=== PATIENT | female | born 1970 | race Caucasian/White ===

== ENCOUNTER 2016-11-30 10:06 | Day surgery (SDC) | payer MEDICAID ==
[2016-11-30] VITALS (21 sets, daily range): BP systolic 81–128; BP diastolic 44–70; PULSE 62–88; RESP 12–25; Ht 154.9 cm; Wt 65.6 kg
[~2016-11-30] VITALS: Ht 154.9 cm; Wt 65.6 kg
[~2016-11-30 10:06] MED LIST: CEFAZOLIN 2 GM/50 ML (PMX) 50 ML IVPB SCH; DOCU-144 PO; FERR324T6 PO; SOD CHLORIDE 0.9% 1,000 ML IV SCH
[2016-11-30 11:33] LABS: ADD SCAN DIFF NO
[2016-11-30 11:42] LABS: BASOPHILS % 0.7 % (0.0-2.0); EOSINOPHILS % 0.2 % (0.0-7.0); HEMATOCRIT 38.5 % (37.0-47.0); HEMOGLOBIN 12.4 g/dl (12.0-16.0); LYMPHOCYTES # 0.9 10^3/ul (0.8-2.9); LYMPHOCYTES % 21.3 % (15.0-51.0); MEAN CORPUSCULAR HEMOGLOBIN 28.2 pg (29.0-33.0); MEAN CORPUSCULAR HGB CONC 32.2 g/dl (32.0-37.0); MEAN CORPUSCULAR VOLUME 87.5 fl (82.0-101.0); MEAN PLATELET VOLUME 10.4 fl (7.4-10.4); MONOCYTE # 0.4 10^3/ul (0.3-0.9); MONOCYTES % 8.6 % (0.0-11.0); NEUTROPHIL # 2.9 10^3/ul (1.6-7.5); PLATELET COUNT 218 10^3/UL (140-415); RED CELL DISTRIBUTION WIDTH 14.7 % (11.5-14.5); WHITE BLOOD COUNT 4.3 10^3/ul (4.8-10.8)
[2016-11-30 12:17] LABS: INR 1.1; PARTIAL THROMBOPLASTIN TIME 31.5 Sec (25.0-35.0); PROTIME 14.2 Sec (12.2-14.2); PT RATIO 1.1
[2016-11-30 12:40] LABS: CALCIUM 8.8 mg/dl (8.4-10.2); CREATININE 0.61 mg/dl (0.44-1.00)
[2016-11-30] MEDS ORDERED: PROPOFOL 40 ML ONE (13:38)
[2016-11-30] MEDS ORDERED: LIDOCAINE 2% (SDV) 5 ML INJ ONE (13:38)
[2016-11-30] MEDS ORDERED: hydrALAzine 20 MG INJ IV PRN (14:00)
[2016-11-30] MEDS ORDERED: FENTAnyl 50 MCG/ML VIAL IV PRN ×3 (14:00)
[2016-11-30] MEDS ORDERED: ONDANSETRON 4 MG INJ IV PRN (14:00)
[2016-11-30] MEDS ORDERED: OXYCODONE/ACETAMINOPHEN (5/325) TAB PO PRN ×2 (14:00)
[2016-11-30] MEDS ORDERED: HYDROmorphONE (0.2 MG/ML) 10ML SYG IV PRN ×3 (14:00)
[2016-11-30] MEDS ORDERED: LABETALOL HCL 20MG INJ IV PRN (14:00)
[2016-11-30] MEDS ORDERED: MEPERIDINE 25 MG INJ IV PRN (14:00)
[2016-11-30] MEDS ORDERED: EPHEDrine SULFATE 50 MG/5 ML SYG ONE (14:20)
--- NOTE | 2016-11-30 14:59 | OPR ---
DATE OF OPERATION: 11/30/2016 PREOPERATIVE DIAGNOSIS: Right axillary nodule. POSTOPERATIVE DIAGNOSIS: Right axillary nodule. OPERATION PERFORMED: Excision of right axillary nodule. ANESTHESIA: General. ANESTHESIOLOGIST: Alex Hargrove MD SURGEON: Tramaine Cowan MD PAPER PRODUCTS SUPERVISOR: None. INDICATIONS FOR PROCEDURE: The patient is a 46-year-old female. She is known to me. I previously treated her for left breast cancer. She developed evidence of a right axillary nodule and was vance rned, although, my clinical index of suspicion was very low that it was related to her previous manuel st cancer. She requested excision of the nodule. She consented and was scheduled for surgery. DESCRIPTION OF PROCEDURE: The patient was brought to the operating theater, placed under general an esthesia. The right axillary region was prepped and draped in the usual sterile fashion. A nodule was palpable approximately 2 cm in diameter. An elliptical incision was made around it and a portio n of the skin overlying the nodule and the nodule was resected using a combination of sharp dissecti on and cautery. It was sent for permanent pathologic analysis. The wound was irrigated with Betadi ne. Minimal bleeding was controlled with cautery, and the skin was reapproximated with 2-0 nylon quiroga tures in vertical mattress fashion. Estimated blood loss was 10 mL. There were no complications an d the patient was transported in stable condition to the recovery room. Dictated By: TRAMAINE CARABALLO/WILLIAMS Conf#: [id number] DID#: [id number]
== END 2016-11-30 17:00 | disposition home or self-care (01) ==
LOC: SDS 10:06
PROVIDERS: ATTEND Surgery Surgical Oncology
DX: L73.2 Hidradenitis suppurativa (principal)
CPT/HCPCS: 11402; 80048; 84703; 85025; 85610; 85730; 88307; J1170; Z7512; Z7610

== ENCOUNTER 2017-08-18 15:53 | Emergency (ER) | payer MEDICAID ==
[~2017-08-18] VITALS: Ht 160 cm; Wt 65.0 kg
[2017-08-18 15:56] VITALS: Ht 160 cm; Wt 65.0 kg
[2017-08-18] MEDS ORDERED: HYDROmorphONE 1 MG/ML SYG IV STA (17:04)
[2017-08-18] MEDS ORDERED: SOD CHLORIDE 0.9% 500 ML IV STA (17:04)
[2017-08-18] MEDS ORDERED: ONDANSETRON 4 MG INJ IV STA (17:04)
--- NOTE | 2017-08-18 17:22 | ERD ---
ER Documentation Chief Complaint Chief Complaint generalize bone pain x2wks. HPI This is a 47-year-old female with metastatic breast cancer, stage IV on chemotherapy who presents with generalized bone pain to her pelvis and legs. She states the pain is been worse over the past 2 weeks and she is only taking tramadol. She denies any fevers chills or cough, no dysuria urgency or frequency. The patient states that cancer has spread to her bones she is not sure which ones. A boat builder was used. The pain today is 8 out of 10 throbbing and constant. ROS All systems reviewed and are negative except as per history of present illness. Medications Home Meds Active Scripts Docusate Sodium* (Colace*) 100 Mg Capsule, 100 MG PO BID Y for CONSTIPATION, # 30 CAP Prov:ERICK ASHER MD 08/18/17 Ondansetron (Ondansetron Odt) 4 Mg Tab.rapdis, 4 MG PO Q6H Y for NAUSEA AND/OR VOMITING, #30 TAB Prov:ERICK ASHER MD 08/18/17 Hydrocodone/Acetaminophen (Glide 10-325 Tablet) 1 Each Tablet, 1 TAB PO Q6H Y for PAIN, #12 TAB Prov:ERICK ASHER MD 08/18/17 Reported Medications Tramadol Hcl* (Ultram*) 50 Mg Tablet, 50 MG PO BID Y for PAIN, TAB 08/18/17 Tamoxifen Citrate* (Tamoxifen Citrate*) 20 Mg Tab, 20 MG PO DAILY, TAB 08/18/17 Allergies Allergies: Coded Allergies: No Known Allergy (Verified , 08/18/17) PMhx/Soc History of Surgery: Yes (PORT A CATH, LEFT BREAST MASS REMOVAL AND SURGERY) Anesthesia Reaction: No Hx Neurological Disorder: No Hx Respiratory Disorders: No Hx Cardiac Disorders: No Hx Psychiatric Problems: No Hx Miscellaneous Medical Probl: No Hx Alcohol Use: No Hx Substance Use: No Hx Tobacco Use: No Smoking Status: Never smoker FmHx Family History: No diabetes Physical Exam Vitals Vital Signs Date Time Temp Pulse Resp B/P Pulse Ox O2 Delivery O2 Flow Rate FiO2 08/18/17 15:56 99.0 84 20 110/72 98 Physical Exam General: Well developed, well nourished, no acute distress Head: Normocephalic, atraumatic. Eyes: Pupils equally reactive, EOM intact ENT: Moist mucous membranes Neck: Supple, no lymphadenopathy Respiratory: Lungs clear bilaterally, no distress Cardiovascular: RRR, no murmurs, rubs, or gallops Abdominal: Soft, non-tender, non-distended, no peritoneal signs pelvis stable : Deferred MSK: No edema, no unilateral swelling, 5/5 strength, no bony abnormalities to bilateral hips or femur with normal and internal and external rotation, steady gait. Neurologic: Alert and oriented, moving all extremities, normal speech, no focal weakness, no cerebellar signs Skin: No rash Psych: Normal mood Result Diagram: 08/18/17 1710 08/18/17 171 Results 24 hrs Laboratory Tests Test 08/18/17 17:10 White Blood Count 5.810^3/ul Red Blood Count 4.4510^6/ul Hemoglobin 13.0g/dl Hematocrit 38.4% Mean Corpuscular Volume 86.3fl Mean Corpuscular Hemoglobin 29.2pg Mean Corpuscular Hemoglobin Concent 33.9g/dl Red Cell Distribution Width 13.0% Platelet Count 10382^3/UL Mean Platelet Volume 10.0fl Neutrophils % 64.6% Lymphocytes % 23.6% Monocytes % 10.1% Eosinophils % 0.5% Basophils % 0.5% Nucleated Red Blood Cells % 0.0/100WBC Neutrophils # 3.710^3/ul Lymphocytes # 1.410^3/ul Monocytes # 0.610^3/ul Eosinophils # 0.010^3/ul Basophils # 0.010^3/ul Nucleated Red Blood Cells # 0.010^3/ul Sodium Level 145mmol/L Potassium Level 4.1mmol/L Chloride Level 107mmol/L Carbon Dioxide Level 27mmol/L Anion Gap 15 Blood Urea Nitrogen 8mg/dl Creatinine 0.69mg/dl Glucose Level 96mg/dl Calcium Level 9.4mg/dl Current Medications Medications (Trade) Dose Ordered Sig/Maria Alejandra Route PRN Reason Start Time Stop Time Status Last Admin Dose Admin Sodium Chloride (NS) 500 ml @ 500 mls/hr Q1H STAT IV 08/18/17 17:04 08/18/17 18:03 08/18/17 17:16 Hydromorphone HCl (Dilaudid) 0.5 mg ONCE STAT IV 08/18/17 17:04 08/18/17 17:06 DC 08/18/17 17:16 Ondansetron HCl (Zofran Inj) 4 mg ONCE STAT IV 08/18/17 17:04 08/18/17 17:06 DC 08/18/17 17:16 Procedures/MDM LAB INTERPRETATION: No evidence of leukocytosis, pancytopenia or hypercalcemia MEDICAL DECISION MAKING: The patient presents with bony pain likely secondary to her metastatic breast cancer. The patient has no evidence of fracture as her pelvis is stable and she is steady on her feet and ambulating without difficulty. For this reason I do not believe that x-ray imaging would be necessary. I believe checking basic blood work to rule out significant hypercalcemia or pancytopenia would be reasonable. I will reach out to the patient's oncologist, Dr. Vergara. The patient will likely require increased narcotic pain medication. I will initiate Glide after conversation with the patient's oncologist. ER COURSE: Patient was given IV fluids and Dilaudid with Zofran. Pain is improved after medications as described above. Laboratory testing is unrevealing. At this point the patient is safe for discharge. I will change her medications to Glide and Zofran and Colace. I spoke to Dr. Rosales who is on- call for the patient's oncologist who will relay the messaging. I kept the patient and/or family informed of laboratory and diagnostic imaging results throughout the emergency room course. DISPOSITION PLAN: We discussed follow up with the patient's primary care doctor within 24 to 48 hours as needed. We also discussed return to the emergency room for worsening symptoms or worsening condition. Outpatient referral: [None required] Discharge Medications: Glide, Zofran, Colace We discussed the use of narcotics including avoidance of operating heavy machinery and driving as well as its addictive properties. Departure Diagnosis: Primary Impression: Breast cancer, stage 4 Laterality: unspecified laterality Qualified Code: C50.919 - Malignant neoplasm of breast, stage 4, unspecified laterality Additional Impression: Myalgia Condition: ERICK Jimenez MD Aug 18, 2017 17:22
[2017-08-18 17:24] LABS: BASOPHILS % 0.5 % (0.0-2.0); EOSINOPHILS % 0.5 % (0.0-7.0); HEMATOCRIT 38.4 % (37.0-47.0); LYMPHOCYTES # 1.4 10^3/ul (0.8-2.9); LYMPHOCYTES % 23.6 % (15.0-51.0); MEAN CORPUSCULAR HEMOGLOBIN 29.2 pg (29.0-33.0); MEAN CORPUSCULAR HGB CONC 33.9 g/dl (32.0-37.0); MEAN CORPUSCULAR VOLUME 86.3 fl (82.0-101.0); MONOCYTE # 0.6 10^3/ul (0.3-0.9); MONOCYTES % 10.1 % (0.0-11.0); NEUTROPHIL # 3.7 10^3/ul (1.6-7.5); NEUTROPHILS % 64.6 % (39.0-77.0); PLATELET COUNT 204 10^3/UL (140-415); RED BLOOD COUNT 4.45 10^6/ul (4.20-5.40); WHITE BLOOD COUNT 5.8 10^3/ul (4.8-10.8)
[2017-08-18] MEDS ORDERED: TRAM-40 PO (17:24)
[2017-08-18] MEDS ORDERED: NOL20 PO (17:24)
[2017-08-18 17:47] LABS: CALCIUM 9.4 mg/dl (8.4-10.2); CREATININE 0.69 mg/dl (0.44-1.00); POTASSIUM 4.1 mmol/L (3.5-5.1)
[2017-08-18] MEDS ORDERED: HYDR-902 PO (17:58)
[2017-08-18] MEDS ORDERED: ONDA4TAB14 PO (17:58)
[2017-08-18] MEDS ORDERED: DOCU-144 PO (17:58)
== END 2017-08-18 18:14 | disposition home or self-care (01) ==
LOC: E/R 15:53
DX: C50.919 Malignant neoplasm of unspecified site of unspecified female breast (principal); M79.1 Myalgia
CPT/HCPCS: 36415; 80048; 85025; 96374; 96375; J1170; J2405; J7040; Z7502

== ENCOUNTER → 2017-09-06 | Outpatient (CLI) | payer MEDICAID ==
[~2017-09-06] MED LIST changes: -CEFAZOLIN 2 GM/50 ML (PMX) 50 ML IVPB SCH; -FERR324T6 PO; +HYDR-902 PO; +NOL20 PO; +ONDA4TAB14 PO; -SOD CHLORIDE 0.9% 1,000 ML IV SCH; +TRAM-40 PO
--- NOTE | 2017-09-09 13:40 | RADRPT ---
Echocardiogram Report Patient Name: DAWSON PRADO Gender: Female Date: 1970 Study Date: 06-Sep-2017 Reception Clerk: DAVINA Location: EKG Ref. Physician: CIERRA VALDIVIA Quality: Adequate Procedures: Transthoracic echocardiogram with complete 2D, M-Mode, and doppler examination. Indications: Breast CA. 2D/M Mode Doppler Measurement Value Normal Ranges Measurement Value Normal Ranges LVIDd 2D 3.9 3.5 - 5.6 cm AV Peak Marco 1.4 m/sec LVIDs 2D 2.4 2.1 - 4.1 cm AV Peak PG 8.2 mmHg LVPWd 2D 0.9 0.6 - 1.1 cm MV A Peak Marco 0.9 m/sec IVSd 2D 0.9 0.6 - 1.1 cm TR Peak Marco 2.9 m/sec AoR Diam 2D 3.0 2.0 - 3.7 cm TR Peak PG 34.0 mmHg EDV 2D 66.1 cm3 RVSP 37.0 mmHg ESV 2D 13.9 cm3 LVOT Diam 2.0 cm Findings Left Ventricle: Normal left ventricular systolic function. Normal left ventricular cavity size. Normal left ventricular wall thickness. Ejection fraction is visually estimated at 55 %. Abnormal Diastolic Function. Right Ventricle: Normal right ventricular size. Normal right ventricular systolic function. Left Atrium: The left atrium is normal in size. Right Atrium: The right atrium is normal in size. Mitral Valve: Mild mitral leaflet calcification. Mild mitral annular calcification. Trace mitral regurgitation. Aortic Valve: Normal appearance of the aortic valve. No significant aortic stenosis or insufficiency. Tricuspid Valve: Normal appearance of the tricuspid valve. Estimated peak PA systolic pressure 37 mmHg. There is mild tricuspid regurgitation. Pulmonic Valve: Pulmonic valve not well visualized. There is trace pulmonic regurgitation. Pericardium: Normal pericardium with no significant pericardial effusion. Aorta: Normal aortic root. IVC: Normal size and normal respiratory collapse consistent with normal right atrial pressure. Conclusions 1.Normal left ventricular systolic function. Normal left ventricular cavity size. Normal left ventricular wall thickness. Ejection fraction is visually estimated at 55 %. Abnormal Diastolic Function. 2.Mild mitral leaflet calcification. Mild mitral annular calcification. Trace mitral regurgitation. 3.Normal appearance of the aortic valve. No significant aortic stenosis or insufficiency. 4.Normal appearance of the tricuspid valve. Estimated peak PA systolic pressure 37 mmHg. There is mild tricuspid regurgitation. 5.Pulmonic valve not well visualized. There is trace pulmonic regurgitation. 6.Normal pericardium with no significant pericardial effusion. Electronically Signed By: Bethany Bell 09-Sep-2017 13:39:42 -0800 Patient Name: DAWSON PRADO Study Date: 06-Sep-2017 [id number]
== END | disposition home or self-care (01) ==
LOC: EKG 14:08
PROVIDERS: ATTEND Internal Medicine Hematology & Oncology
DX: C50.919 Malignant neoplasm of unspecified site of unspecified female breast (principal)
CPT/HCPCS: 93306

== ENCOUNTER 2017-11-11 11:22 | Inpatient (IN) | END 2017-11-14 17:20 | disposition home or self-care (01) | DRG 55 ==

== ENCOUNTER 2017-11-26 11:33 | Inpatient (IN) | END 2017-12-04 10:33 | disposition EXP | DRG 597 ==